=== PATIENT | female | born 1960 | race Caucasian/White ===

== ENCOUNTER 2023-06-05 08:43 | Outpatient (CLI) | payer OTHER | END 2023-06-05 08:57 | disposition home or self-care (01) | LOC: MRI 08:43 | DX: M54.16 Radiculopathy, lumbar region (principal); R26.9 Unspecified abnormalities of gait and mobility; R26.89 Other abnormalities of gait and mobility | CPT/HCPCS: 70553; 72148; Q9965 ==

== ENCOUNTER 2023-06-05 10:26 | Outpatient (CLI) | payer OTHER ==
[2023-06-05 11:58] LABS: CREATININE SERUM 0.67 mg/dL (0.55-1.02)
== END 2023-06-05 14:02 | disposition home or self-care (01) ==
LOC: LAB 10:26
PROVIDERS: ATTEND Radiology Diagnostic Radiology
DX: R26.9 Unspecified abnormalities of gait and mobility (principal); R26.89 Other abnormalities of gait and mobility